=== PATIENT | female | born 1980 | race Caucasian/White ===

== ENCOUNTER 2019-11-11 10:28 | Emergency (ER) | payer OTHER ==
[~2019-11-11] VITALS: Ht 175.3 cm; Wt 91.4 kg
--- NOTE | 2019-11-11 11:01 | NUR ---
PT AMBULATED TO ROOM WITH A STEADY GAIT. CHANGED INTO A HOSPITAL GOWN. ATTACHED TO MONITORS. PT IN PER RECOMMENDATION OF URGENT CARE D/T CONCERN FOR PE AND TACHYCARDIA. PT STATES THAT HER DAUGTHER HAS RSV. PT EXPRESSED SHE NOW HAS "CHEST PRESSURE" AND SHORTNESS OF BREATH.
--- NOTE | 2019-11-11 11:02 | NUR ---
PROVIDER AT BEDSIDE.
--- NOTE | 2019-11-11 11:19 | NUR ---
lab at bedside
[2019-11-11] MEDS ORDERED: SODIUM CHLORIDE FLUSH 10ML SYR IVF ONE (11:30)
[2019-11-11 11:34] LABS: BASOPHILS # (AUTO) 0.05 x10^3/uL (0-0.1); BASOPHILS % (AUTO) 1 % (0-1); EOSINOPHILS # (AUTO) 0.08 x10^3/uL (0-0.4); EOSINOPHILS % (AUTO) 1 % (1-7); LYMPHOCYTES # (AUTO) 1.24 x10^3/uL (1-3.4); LYMPHOCYTES % (AUTO) 12 % (22-44); MD NO; MEAN CORPUSCULAR HEMOGLOBIN 29.4 pg (27.0-34.8); MEAN CORPUSCULAR HGB CONC 33.5 g/dL (32.4-35.8); MEAN CORPUSCULAR VOLUME 87.7 fL (80-100); MEAN PLATELET VOLUME 8.2 fL (7.4-10.4); MONOCYTES # (AUTO) 0.64 x10^3/uL (0.2-0.8); MONOCYTES % (AUTO) 6 % (2-9); NEUTROPHILS # (AUTO) 8.65 x10^3/uL (1.8-6.8); NEUTROPHILS % (AUTO) 81 % (42-75); PLATELET COUNT 248 x10^3/uL (130-400); RED BLOOD COUNT 4.81 x10^6/uL (3.82-5.3); RED CELL DISTRIBUTION WIDTH 13.7 % (9.6-15.2)
[2019-11-11 11:44] LABS: ALBUMIN 3.3 g/dL (3.4-5.0); ANION GAP 8 mmol/L (5-15); CALCIUM 8.7 mg/dL (8.5-10.1); CHLORIDE 109 mmol/L (98-107); CREATININE 0.79 mg/dL (0.55-1.02)
[2019-11-11 11:49] LABS: TROPONIN I < 0.015 ng/mL (0.000-0.045)
[2019-11-11 12:04] VITALS: BP 115/76
--- NOTE | 2019-11-11 12:14 | NUR ---
Pt resting in room, vss at this time. Pt ready for cta and now leaving for exam.
[2019-11-11] MEDS ORDERED: OMNIPAQUE 350 MG/ML, 100ML BOTTLE ONE (12:32)
[2019-11-11] MEDS ORDERED: LEVOFLOXACIN 750 MG TABLET PO ONE (13:00)
[2019-11-11] MEDS ORDERED: LEVOFLOXACIN 750 MG TABLET ONE (13:11)
--- NOTE | 2019-11-11 13:20 | NUR ---
Patient/Caregiver given discharge instructions and they have confirmed that they understand the instructions. Patient ambulatory with steady gait.
== END 2019-11-11 13:22 | disposition home or self-care (01) ==
LOC: ED 13:00
DX: J15.9 Unspecified bacterial pneumonia (principal); M79.10 Myalgia, unspecified site; R00.0 Tachycardia, unspecified
CPT/HCPCS: 36415; 71275; 80048; 82040; 83880; 84484; 85025; 93005; 99284; Q9967